=== PATIENT | female | born 2000 ===

== ENCOUNTER 2023-05-02 12:52 | Outpatient (REF) | payer OTHER, SELFPAY ==
[2023-05-03 13:14] LABS: Amphetamine Screen Urine Not Detected (Not Detect); Barbiturates, Urine Not Detected (Not Detect); Benzodiazepines Screen Urine Not Detected (Not Detect); Cannabinoid Screen Urine Not Detected (Not Detect); Cocaine Screen Urine Not Detected (Not Detect); Fentanyl, urine Not Detected (Not Detect); Opiate Screen Urine Not Detected (Not Detect); Phencyclidine Screen Urine Not Detected (Not Detect)
== END 2023-05-02 12:53 | disposition home or self-care (01) ==
LOC: HO.LNP 12:52
PROVIDERS: Visit Provider Psychiatry & Neurology Psychiatry
DX: F15.21 Other stimulant dependence, in remission (principal)
CPT/HCPCS: 80307

== ENCOUNTER → 2023-05-09 13:15 | Outpatient (BNV) | payer OTHER, SELFPAY | PROVIDERS: Visit Provider Psychiatry & Neurology Psychiatry | DX: F31.81 Bipolar II disorder (principal); F90.2 Attention-deficit hyperactivity disorder, combined type; F43.10 Post-traumatic stress disorder, unspecified; F15.21 Other stimulant dependence, in remission | CPT/HCPCS: 99204; 99212; 99213 ==

== ENCOUNTER 2023-05-11 13:00 | Outpatient (RCR) | payer OTHER, SELFPAY ==
[2023-04-30 11:54] VITALS: BMI 50.6
[2023-04-30 11:56] VITALS: BP 136/78; PULSE 88; TEMP 36.5
--- NOTE | 2023-04-30 12:46 | PC.ADMIT ---
Patient is a 22 year old female who was referred to PHP by Travon at [facility] where she was evaluated by crisis d/t c/o increased depression, anxiety, and is using substances to cope. Patient is currently taking a leave of absence from work to work on her mental health. She has a history of Methamphetamine use and is working on sobriety. she reports last use 04/06/23. She reports attending NA meetings once a week with her who is in recovery from opiates. I educated Brenda about a Quality Control Lab Tech and she stated she was interested. She called [facility] and left a message with Piero regarding her interest in getting a Quality Control Lab Tech. Patient is alert and oriented x4. Calm and cooperative. Presented with depressed mood and affect. Denied SI. Patient given a copy of her safety plan if needed. She reports she is not on any prescription medication at this time. Reports history of being on ADHD medications having tried different ones.
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
--- NOTE | 2023-05-03 18:49 | HO.PHP ---
The client's case was reviewed and opened in treatment team.
--- NOTE | 2023-05-07 08:21 | HO.PHP ---
PHP staff member faxed the information over for OP services to [facility] and is awaiting a call with the intake date and times.
--- NOTE | 2023-05-08 07:48 | HO.PHP ---
[facility] staff member received a VM from Elodia through [facility] with Brenda's OP therapy and med provider appointment. Brenda's appointment is scheduled for May 14, 2023 at 10 AM with Brenda Mckeon for the OP therapy intake. Brenda's appointment is scheduled with the med provider Ju Larios on June 05, 2023 at 11 AM via telehealth.
--- NOTE | 2023-05-10 17:57 | P.PNPSP_ITS ---
Subjective Subjective Date of Service: 05/10/23 Reason For Visit: bipolar,PTSD,borderline personality d/o,ANYA Interim History: No acute issues, mood has been stable. Denies lability, irritability. Most anxious about returning to work. Has been taking Latuda daily. Denies any adverse effects. Sleeping well with gabapentin at night. SHe is open to trial of modafinil to address long-standing adhd symptoms while also limiting complicating prosentation. MOod stable. WIll start modafinil 100 mg qam and follow up tomorrow. Mental Status Exam Mental Status Exam Narrative: Alert, oriented, in no acute distress. Casually dressed. Groomed. Normal gait, no tics/tremors/dyskinesia, no psychomotor agitation or neurovegetative retardation. Calm, cooperative, forthcoming. Eye contact. Mood is depressed. Affect constricted, anxious. Speech is normal rate, low volume, low prosody. No latency or pressured speech. Thought process is linear, coherent without illogicality or FOI/BUCKY. Thought content relevant to stressors. No gross evidence of psychosis. No thoughts of harming self or others. Cognition grossly intact. Sensorium clear. Insight fair/good. Judgment fair but adequate. Diagnostics Vital Signs (24Hr): BMI result Body Mass Index 50.6 Assessment & Plan Assessment & Plan (1) Bipolar II disorder with rapid cycling: Status: Acute Code(s): F31.81 - Bipolar II disorder (2) Attention deficit hyperactivity disorder (ADHD), combined type: Status: Acute Code(s): F90.2 - Attention-deficit hyperactivity disorder, combined type (3) Methamphetamine use disorder, moderate, in early remission: Status: Acute Code(s): F15.21 - Other stimulant dependence, in remission (4) Complex posttraumatic stress disorder: Status: Acute Code(s): F43.10 - Post-traumatic stress disorder, unspecified Plan start modafinil 100 mg qam cont trt plan Certification I certify that partial hospital treatment is medically necessary due to the symptoms and problems resulting from the patient's mental illness and the failure to treat the patient at the partial hospital level of care would likely result in the patient requiring inpatient psychiatric care which could not be prevented at a less intensive level of care. Total time managing care of this patient today ____ minutes. Discharge Plan Discharge Attending provider: Luz Negron Instructions: Brenda has an OP therapy intake at [facility] on May 14, 2023 at 10 AM with Brenda Mckeon. Brenda has a med provider appointment through [facility] on June 05, 2023 at 11 AM with Ju Larios. Medications: New albuterol sulfate 90 mcg/actuation HFA aerosol inhaler 1 inh inhalation QID PRN (Reason: shortness of breath or wheezing) Qty: 8.5 0RF modafinil 100 mg tablet 100 mg PO QAM Qty: 30 0RF gabapentin 400 mg capsule See Rx Instructions .ROUTE .COMPLEX 15 Days Qty: 60 1RF Rx Instructions: take one capsule po daily in AM, one capsule po daily in afternoon, 2 capsules po daily at bedtime as directed Continued metformin 500 mg tablet 500 mg PO DAILY 30 Days Qty: 30 0RF lurasidone 40 mg tablet 40 mg PO QPM 30 Days Qty: 30 0RF Rx Instructions: take 1/2 tablet po daily with evening meal for 4 days, then increase to one tablet daily with evening meal must administer with food (at least 350 calories) Stand Alone Forms: Patient Portal Discharge page Patient Education: ADHD in Adults (DC), Generalized Anxiety Disorder (GEN)
--- NOTE | 2023-05-11 16:31 | HO.PHPPROGNO ---
Subjective Subjective Date of Service: 05/11/23 Reason For Visit: bipolar,PTSD,borderline personality d/o,ANYA Interim History: Patient seen for follow-up. She anticipates discharge at the end of the program today. Patient reports she is doing well, feeling some anxiety about anticipating return to work. She had been struggling with ADHD (which had not been treated for years) which was compromising her ability to stay on top of paperwork, multitask and stay organized. Today she reports mood is stable. Denies any issues with irritability or lability. No depressive symptoms, hopelessness or SI. Sleep is improved with gabapentin. Appetite intact. She is tolerating medications including Latuda 40 mg qd without any side effects. She is to take the stimulant medication no more than 3 days a week, in order to allow more time for Latuda to stabilize mood before increasing dose of a stimulant medication or increasing # days per week treated. We reviewed helpful tips and practices, including limiting caffeine, and promoting healthy sleep practices. Refrain from alcohol or substance use. She is aware stimulating medications work best under ideal conditions which includes being medication compliant with mood stabilizer, eating breakfast before taking her stimulant and will avoid taking the stimulants on days following inadequate sleep, feeling unwell, or mood instability or high anxiety. Medication Compliance: Yes Attending Groups: Yes Review of Systems Acute medical concerns: No Mental Status Exam Mental Status Exam Patient Appearance: Appropriate Patient Orientation: Person, Place and Time Level of Consciousness: Awake and Alert Patient Behavior: Appropriate Mood Description: Calm and Anxious Affect Description: Calm and Appropriate Patient Cognition Impaired: No Ability to Follow Directions: Excellent Speech Pattern: Clear, Appropriate and Spontaneous Speech Memory Description: Intact Hallucinations: None Delusions: Not Present Thought Process: Intact and Goal Oriented Thought Content: positive for Intact, positive for Goal Oriented and positive for Linear Abnormal Motor Activity Signs and Symptoms: Hyperactivity Judgement: Good Diagnostics Vital Signs (24Hr): BMI result Body Mass Index 50.6 Assessment & Plan Assessment & Plan (1) Bipolar II disorder with rapid cycling: Status: Acute Code(s): F31.81 - Bipolar II disorder (2) Attention deficit hyperactivity disorder (ADHD), combined type: Status: Acute Code(s): F90.2 - Attention-deficit hyperactivity disorder, combined type Assessment and Plan: childhood diagnosis and treatment (3) Complex posttraumatic stress disorder: Status: Acute Code(s): F43.10 - Post-traumatic stress disorder, unspecified (4) Methamphetamine use disorder, moderate, in early remission: Status: Acute Code(s): F15.21 - Other stimulant dependence, in remission Plan [facility]charge from [facility] continue in recovery starts back to work next week at [employer] continue current medication regime: modafinil 100 mg qAM (limit to 3 days/week) Latuda 40 mg qd w evening meal metformin 500 mg qhs gabapentin 400 mg in AM, 400 mg in afternoon, 800 mg qHS (to target pain, anxiety, sleep) Patient educated on: diagnosis, medication risk/benefits and substance abuse Informed Consent: understands Reason for contiued partial hosp. stay Substantial Risk for: stable for discharge Certification I certify that partial hospital treatment is medically necessary due to the symptoms and problems resulting from the patient's mental illness and the failure to treat the patient at the partial hospital level of care would likely result in the patient requiring inpatient psychiatric care which could not be prevented at a less intensive level of care. Total time managing care of this patient today __30__ minutes. Discharge Plan Discharge Attending provider: Luz Negron Additional Instructions: Brenda has an OP therapy intake at [facility] on May 14, 2023 at 10 AM with Brenda Mckeon. Brenda has a med provider appointment through [facility] on June 05, 2023 at 11 AM with Ju Larios. Medications: New albuterol sulfate 90 mcg/actuation HFA aerosol inhaler 1 inh inhalation QID PRN (Reason: shortness of breath or wheezing) Qty: 8.5 0RF modafinil 100 mg tablet 100 mg PO QAM Qty: 30 0RF gabapentin 400 mg capsule See Rx Instructions .ROUTE .COMPLEX 15 Days Qty: 60 1RF Rx Instructions: take one capsule po daily in AM, one capsule po daily in afternoon, 2 capsules po daily at bedtime as directed Continued metformin 500 mg tablet 500 mg PO DAILY 30 Days Qty: 30 0RF lurasidone 40 mg tablet 40 mg PO QPM 30 Days Qty: 30 0RF Rx Instructions: take 1/2 tablet po daily with evening meal for 4 days, then increase to one tablet daily with evening meal must administer with food (at least 350 calories) Stand Alone Forms: Patient Portal Discharge page Patient Education: ADHD in Adults (DC), Generalized Anxiety Disorder (GEN)
== END 2023-05-11 23:59 | disposition home or self-care (01) ==
LOC: HO.PHPA 13:00
PROVIDERS: Visit Provider Psychiatry & Neurology Psychiatry
DX: F31.81 Bipolar II disorder (principal); F90.2 Attention-deficit hyperactivity disorder, combined type; F41.8 Other specified anxiety disorders; F43.10 Post-traumatic stress disorder, unspecified; F15.21 Other stimulant dependence, in remission; Z86.59 Personal history of other mental and behavioral disorders; Z79.899 Other long term (current) drug therapy
CPT/HCPCS: 90791; 90853